=== PATIENT | female | born 1965 | race Caucasian/White ===

== ENCOUNTER → 2017-11-26 | Outpatient (CLI) | payer OTHER ==
[~2017-11-26] MED LIST: LEVO-3 PO
[2017-11-26 12:24] LABS: PLATELET COUNT, AUTOMATED 209 K/uL (150-450)
== END ==
LOC: LAB 11:36
PROVIDERS: ATTEND Emergency Medicine
DX: E03.9 Hypothyroidism, unspecified (principal); E53.8 Deficiency of other specified B group vitamins; Z72.9 Problem related to lifestyle, unspecified
CPT/HCPCS: 36415; 82607; 83090; 83921; 84439; 84481; 85025; 86376; 86803

== ENCOUNTER → 2017-11-30 | Outpatient (CLI) | payer OTHER | LOC: LAB 09:25 | PROVIDERS: ATTEND Emergency Medicine | DX: E03.9 Hypothyroidism, unspecified (principal) | CPT/HCPCS: 84443 ==

== ENCOUNTER → 2017-12-22 | Outpatient (CLI) | payer OTHER ==
[~2017-12-22] MED LIST changes: +CHOL10005 PO
--- NOTE | 2017-12-22 11:19 | RADIOLOGY IMAGING REPORT ---
FACILITY: [facility] PATIENT NAME: WHITNEY CONTRERAS : [id number] MR: [id number] V: [id number] EXAM DATE: ORDERING PHYSICIAN: MARCIO THOMPSON TECHNOLOGIST: Serena Nguyen PROCEDURE:BILATERAL DIAGNOSTIC DIGITAL MAMMOGRAM WITH CAD ASSISTED INTERPRETATION & 3D TOMOSYNTHESIS COMPARISON:Prior mammograms 02/17/13, 02/17/12. INDICATIONS:right breast pain following trauma to the upper outer quadrant. FINDINGS: A small amount of fibroglandular tissue is seen throughout the breasts. The parenchymal pattern has remained stable allowing for difference in mammographic technique & patient positioning. There is no evidence of malignant appearing mass, malignant appearing calcifications or other secondary sign of malignancy in either breast. DIAGNOSTIC CATEGORY 1--NEGATIVE. RECOMMENDATIONS: ROUTINE MAMMOGRAM AND CLINICAL EVALUATION. IMPRESSION: BIRADS 1: Negative. No significant abnormality is seen. Dictated by: Jasmin Lam M.D. on 12/22/2017 at 10:59 Transcribed by: RC on 12/22/2017 at 11:06 Approved by: Jasmin Lam M.D. on 12/22/2017 at 11:18 [facility]
== END ==
LOC: MAMO 01:59
PROVIDERS: ATTEND Emergency Medicine
DX: N64.4 Mastodynia (principal); Z80.3 Family history of malignant neoplasm of breast
CPT/HCPCS: 77062; 77066

== ENCOUNTER → 2018-01-11 | Outpatient (CLI) | payer OTHER ==
[~2018-01-11] MED LIST changes: +CYAN250013 PO; +LEVO75TA73 PO
== END ==
LOC: LAB 13:08
PROVIDERS: ATTEND Emergency Medicine
DX: E03.9 Hypothyroidism, unspecified (principal)
CPT/HCPCS: 36415; 84443

== ENCOUNTER 2018-01-13 01:30 | Day surgery (SDC) | payer OTHER ==
[~2018-01-13] VITALS: Ht 175.3 cm; Wt 94.3 kg
[2018-01-13 07:28] VITALS: BP 153/102
[2018-01-13] MEDS ORDERED: NORMOSOL R SOLN(*) 1000 ML BAG 1,000 ML IV PRN (07:40)
[2018-01-13] MEDS ORDERED: LIDOCAINE/SOD BICARB 8.4% SYR ID ONE (07:40)
[2018-01-13] MEDS ORDERED: PROPOFOL EMUL(*) 10MG/ML 20 ML 20 ML ONE ×2 (09:45→09:47)
[2018-01-13] MEDS ORDERED: PROPOFOL EMUL(*) 10MG/ML 20 ML 60 ML ONE (09:46)
[2018-01-13 09:53] VITALS: BP 106/73
--- NOTE | 2018-01-13 09:58 | Short(Outpt) Discharge Summary ---
Discharge Summary Reason for Hosp/Final Diag: (1) Colon cancer screening Status: Chronic Hospital Course & Plan: Colonoscopy with polypectomy x7 completed without problems. Departure Discharge to: Home, Self Care Discharge Instructions Home Meds Active Scripts Levothyroxine Sodium (LEVOTHYROXINE SODIUM) 75 Mcg Tablet, 1 TAB PO QDAY, #60 TAB Prov:MARCIO THOMPSON MD 01/11/18 Reported Medications Cyanocobalamin (Vitamin B-12) (Vitamin B12) 2,500 Mcg Tab.chew, PO QDAY 01/01/18 Cholecalciferol (Vitamin D3) (VITAMIN D3) Unknown Strength Tablet, PO, TAB 12/23/17 Discontinued Scripts Levothyroxine Sodium (LEVOTHYROXINE SODIUM) 100 Mcg Tablet, 100 MCG PO DAILY, #45 TAB 0 Refills Prov:MARCIO THOMPSON MD 11/26/17 Diet: Regular Activity: As Tolerated Special Instructions: Your colonoscopy was completed without problems. Your prep was acceptable but there was still quite a bit of vegetable matter in your colon that couldn't be sucked out as it clogged the scope. I was able to see a vast majority of your colon without problems. I removed 7 polyps from your colon and they were sent to pathology. My office will call you in the next week or so and let you know what the polyps are and when your next colonoscopy should be (3, 5, or 10) years depending on the pathology results. NESTOR HOPPER MD Jan 13, 2018 09:58
[2018-01-13 10:00] VITALS: BP 102/70
[2018-01-13 10:13] VITALS: BP 110/89
[2018-01-13 10:15] VITALS: BP 106/80
== END 2018-01-13 10:43 | disposition home or self-care (01) ==
LOC: OR 01:30
PROVIDERS: ATTEND Surgery
DX: Z12.11 Encounter for screening for malignant neoplasm of colon (principal); D12.2 Benign neoplasm of ascending colon; D12.0 Benign neoplasm of cecum; D12.3 Benign neoplasm of transverse colon
CPT/HCPCS: 00811; 45385; 81025; 88305; J2704

== ENCOUNTER → 2018-03-25 | Outpatient (CLI) | payer OTHER | LOC: LAB 16:02 | PROVIDERS: ATTEND Emergency Medicine | DX: E03.9 Hypothyroidism, unspecified (principal) | CPT/HCPCS: 36415; 84443 ==